=== PATIENT | female | born 1945 | race Two or more races ===

== ENCOUNTER 2017-01-26 13:09 | Observation (INO) | payer MEDICAID, OTHER ==
[~2017-01-26] VITALS: Ht 162.6 cm; Wt 72.6 kg
[2017-01-26 14:34] LABS: Urine RBC None Seen /hpf (0 - 4)
[2017-01-26 14:44] LABS: Basophils # (auto) 0.2 uL; Basophils % (auto) 1.8 % (0.0-2.0); Eosinophils # (auto) 0.4 uL; Eosinophils % (auto) 3.2 % (0.0-7.0); Hematocrit 43.3 % (36.0-46.0); Lymphocytes # (auto) 4.3 uL; Mean Corpuscular Hemoglobin 28.8 pg (28.0-32.0); Mean Corpuscular Hgb Conc. 34.6 g/dL (32.0-36.0); Mean Platelet Volume 8.7 fL (7.4-10.4); Monocytes # (auto) 0.8 uL; Monocytes % (auto) 7.7 % (0.0-12.0); Neutrophils # (auto) 5.3 uL; Neutrophils % (auto) 48.3 % (37.0-80.0); Platelet Count (auto) 403 10^3/uL (140-450); Red Cell Distribution Width 13.9 % (11.6-16.0); White Blood Cell 10.9 10^3/uL (4.4-10.8)
[2017-01-26 14:48] LABS: Urine Bilirubin Negative (Negative); Urine Blood Negative /uL (Negative); Urine Color Yellow (Yellow); Urine Glucose Normal (Normal); Urine Ketone Negative (Negative); Urine Nitrite Negative (Negative); Urine Squamous Epithelial Cell FEW /hpf (<5); Urine Urobilinogen Normal (Negative); Urine pH 6.5 (5.0-8.0)
[2017-01-26 15:16] LABS: Albumin 3.3 g/dL (3.4-5.0); BUN/Creatinine Ratio 23.5; Calcium 9.3 mg/dL (8.5-10.1); Potassium 3.3 mmol/L (3.5-5.1)
[2017-01-26 15:20] LABS: Bilirubin, Total 0.5 mg/dL (0.2-1.0); Total Protein 7.5 g/dL (6.4-8.2)
[2017-01-26 16:05] LABS: B-Type Natriuretic Peptide 164.46 pg/mL (0-100); Temperature: 23.9 C (20.0-25.0)
[2017-01-26] MEDS ORDERED: POTASSIUM CHL 20 Meq TABLET PO ONE ×2 (19:15→20:00)
[2017-01-26] MEDS ORDERED: ASPirin 81 mg TAB PO ONE (20:00)
[2017-01-26 23:54] VITALS: BP 138/75
== END 2017-01-27 00:04 | disposition short-term general hospital (02) | DRG 311 ==
LOC: ER 13:18 → EDLOC 13:19 → OVERFLOW 19:54 → ER 19:54 → UNDOADMOB 19:54
PROVIDERS: ADMIT Family Medicine; ATTEND Family Medicine
DX: I24.9 Acute ischemic heart disease, unspecified (principal); I50.41 Acute combined systolic (congestive) and diastolic (congestive) heart failure; E87.6 Hypokalemia; R79.89 Other specified abnormal findings of blood chemistry; F32.9 Major depressive disorder, single episode, unspecified; I11.0 Hypertensive heart disease with heart failure; E11.9 Type 2 diabetes mellitus without complications; Z83.3 Family history of diabetes mellitus; Z82.49 Family history of ischemic heart disease and other diseases of the circulatory system; I25.10 Atherosclerotic heart disease of native coronary artery without angina pectoris; F41.9 Anxiety disorder, unspecified
CPT/HCPCS: 36415; 71020; 80053; 81001; 83735; 83880; 84443; 84484; 85025; 93005; 99285; G0378

== ENCOUNTER 2017-02-23 21:06 | Emergency (ER) | payer OTHER ==
[~2017-02-23] VITALS: Ht 162.6 cm; Wt 74.8 kg
[2017-02-23 22:15] LABS: Basophils # (auto) 0.1 uL; Basophils % (auto) 0.4 % (0.0-2.0); CONDITION Y; Eosinophils # (auto) 0.2 uL; Eosinophils % (auto) 1.4 % (0.0-7.0); Hematocrit 41.3 % (36.0-46.0); Hemoglobin 13.8 g/dL (12.2-16.2); Lymphocytes # (auto) 2.7 uL; Lymphocytes % (auto) 18.8 % (10.0-50.0); Mean Corpuscular Hemoglobin 27.8 pg (28.0-32.0); Mean Corpuscular Hgb Conc. 33.5 g/dL (32.0-36.0); Mean Corpuscular Volume 82.9 fL (80.0-100.0); Mean Platelet Volume 8.4 fL (7.4-10.4); Monocytes % (auto) 7.1 % (0.0-12.0); Neutrophils # (auto) 10.4 uL; Neutrophils % (auto) 72.3 % (37.0-80.0); Platelet Count (auto) 420 10^3/uL (140-450); Red Cell Distribution Width 13.4 % (11.6-16.0); White Blood Cell 14.4 10^3/uL (4.4-10.8)
[2017-02-23 22:17] LABS: Albumin 3.3 g/dL (3.4-5.0); BUN/Creatinine Ratio 19.3; Calcium 8.6 mg/dL (8.5-10.1); Magnesium 2.1 mg/dL (1.6-2.6); Potassium 3.4 mmol/L (3.5-5.1)
[2017-02-23 22:23] LABS: Bilirubin, Total 0.6 mg/dL (0.2-1.0); Total Protein 7.5 g/dL (6.4-8.2)
[2017-02-23 22:24] LABS: INR 0.97 (0.9-1.15); Partial Thromboplastin Time 25.9 sec (22.64-33.71); Prothrombin Time 10.6 sec (9.37-12.3)
[2017-02-24] MEDS ORDERED: HYDROcodone-ACET 5/325MG TAB PO ONE (05:15)
[2017-02-24 05:47] VITALS: BP 121/67
== END 2017-02-24 06:04 | disposition short-term general hospital (02) ==
LOC: ER 21:08
DX: K85.90 Acute pancreatitis without necrosis or infection, unspecified (principal); J45.909 Unspecified asthma, uncomplicated; H40.9 Unspecified glaucoma; I25.10 Atherosclerotic heart disease of native coronary artery without angina pectoris; E11.9 Type 2 diabetes mellitus without complications; R41.82 Altered mental status, unspecified; I10 Essential (primary) hypertension; I25.2 Old myocardial infarction; Z90.49 Acquired absence of other specified parts of digestive tract
CPT/HCPCS: 36415; 70450; 71010; 74176; 80053; 82150; 83690; 83735; 84484; 85025; 85610; 85730; 93005

== ENCOUNTER 2018-05-18 11:21 | Emergency (ER) | payer OTHER, MEDICAID ==
[~2018-05-18] VITALS: Ht 157.5 cm; Wt 68.0 kg
[2018-05-18] MEDS ORDERED: SODIUM CHLORIDE 0.9% 1,000 ML IV ONE (11:27)
[2018-05-18 12:22] LABS: Basophils # (auto) 0.1 uL; Basophils % (auto) 0.6 % (0.0-2.0); Eosinophils # (auto) 0 uL; Eosinophils % (auto) 0.2 % (0.0-7.0); Hematocrit 45.1 % (36.0-46.0); Hemoglobin 14.9 g/dL (12.2-16.2); Lymphocytes # (auto) 1.5 uL; Lymphocytes % (auto) 12.7 % (10.0-50.0); Mean Corpuscular Hgb Conc. 33.1 g/dL (32.0-36.0); Mean Corpuscular Volume 84.7 fL (80.0-100.0); Monocytes % (auto) 8.3 % (0.0-12.0); Neutrophils # (auto) 9.2 uL; Neutrophils % (auto) 78.2 % (37.0-80.0); Platelet Count (auto) 276 10^3/uL (140-450); Red Blood Cells 5.32 10^6/uL (4.0-5.20); Red Cell Distribution Width 14.9 % (11.8-14.3); White Blood Cell 11.8 10^3/uL (4.4-10.8)
[2018-05-18 12:43] LABS: INR 1.07 (0.9-1.15); Partial Thromboplastin Time 32.4 sec (23.78-33.04); Prothrombin Time 11.4 sec (9.27-12.13)
[2018-05-18] MEDS ORDERED: ONDANSETRON HCL 4 MG/2 ML VIAL IV ONE (12:45)
[2018-05-18 12:46] LABS: BUN/Creatinine Ratio 12.9; Bilirubin, Total 0.7 mg/dL (0.2-1.0); Calcium 9.4 mg/dL (8.5-10.1); Magnesium 2.4 mg/dL (1.6-2.6); Potassium 3.5 mmol/L (3.5-5.1); Total Protein 8.1 g/dL (6.4-8.2)
[2018-05-18] MEDS ORDERED: FUROSEMIDE 40 MG/4 ML VIAL ONE (13:53)
[2018-05-18] MEDS ORDERED: FUROSEMIDE 40 MG/4 ML VIAL IV ONE (14:00)
[2018-05-18 14:57] VITALS: BP 158/90
== END 2018-05-18 15:03 | disposition short-term general hospital (02) ==
LOC: EDBD 11:21 → ER 11:21
DX: I48.91 Unspecified atrial fibrillation (principal); R07.9 Chest pain, unspecified; R11.2 Nausea with vomiting, unspecified; J45.909 Unspecified asthma, uncomplicated; I25.10 Atherosclerotic heart disease of native coronary artery without angina pectoris; E11.9 Type 2 diabetes mellitus without complications; I10 Essential (primary) hypertension; I25.2 Old myocardial infarction; Z90.49 Acquired absence of other specified parts of digestive tract; Z86.73 Personal history of transient ischemic attack (TIA), and cerebral infarction without residual deficits
CPT/HCPCS: 36415; 71045; 80053; 83735; 83880; 84484; 85025; 85610; 85730; 93005; 94761; 96361; 96374; 96375; 99291; J1940; J2405

== ENCOUNTER 2019-08-16 18:34 | Emergency (ER) | payer OTHER, MEDICAID ==
[~2019-08-16] VITALS: Ht 162.6 cm; Wt 68.0 kg
[2019-08-16] MEDS ORDERED: DILTIAZEM HCL 25 MG/5 ML VIAL IV ONE (20:30)
[2019-08-16] MEDS ORDERED: DILTIAZEM HCL 60 MG TAB PO ONE (20:30)
[2019-08-16 21:36] LABS: Albumin 3.4 g/dL (3.4-5.0); Calcium 8.6 mg/dL (8.5-10.1); Potassium 3.6 mmol/L (3.5-5.1)
[2019-08-16 21:38] LABS: BUN/Creatinine Ratio 12.9
[2019-08-16 21:42] LABS: Basophils # (auto) 0.1 uL; Basophils % (auto) 0.9 % (0.0-2.0); Bilirubin, Total 0.8 mg/dL (0.2-1.0); Eosinophils # (auto) 0.2 uL; Eosinophils % (auto) 2.3 % (0.0-7.0); Hematocrit 44.6 % (36.0-46.0); Hemoglobin 14.5 g/dL (12.2-16.2); Lymphocytes # (auto) 2.9 uL; Lymphocytes % (auto) 29.1 % (10.0-50.0); Mean Corpuscular Hemoglobin 27.4 pg (28.0-32.0); Mean Corpuscular Hgb Conc. 32.6 g/dL (32.0-36.0); Monocytes % (auto) 9.9 % (0.0-12.0); Neutrophils # (auto) 5.7 uL; Neutrophils % (auto) 57.8 % (37.0-80.0); Nucleated Red Blood Cells % 0.1 %; Platelet Count (auto) 274 10^3/uL (140-450); Red Blood Cells 5.31 10^6/uL (4.0-5.20); Red Cell Distribution Width 17.3 % (11.8-14.3); Total Protein 7.1 g/dL (6.4-8.2); White Blood Cell 9.9 10^3/uL (4.4-10.8)
[2019-08-16 22:50] LABS: Urine Bacteria FEW /hpf (None Seen); Urine Blood Negative /uL (Negative); Urine Hyaline Cast FEW /lpf (0 - 2); Urine Mucus FEW (None Seen); Urine Specific Gravity 1.012 (1.001-1.035); Urine WBC 21 /hpf (0 - 5)
[2019-08-16 23:15] VITALS: BP 134/73
== END 2019-08-16 23:28 | disposition home or self-care (01) ==
LOC: EDBD 18:34 → ER 18:34
DX: I48.0 Paroxysmal atrial fibrillation (principal); J45.909 Unspecified asthma, uncomplicated; E11.9 Type 2 diabetes mellitus without complications; I10 Essential (primary) hypertension; I25.2 Old myocardial infarction; Z90.49 Acquired absence of other specified parts of digestive tract; Z86.73 Personal history of transient ischemic attack (TIA), and cerebral infarction without residual deficits
CPT/HCPCS: 36415; 71045; 80053; 81001; 83880; 84484; 85025; 92960; 93005; 96374

== ENCOUNTER 2019-08-17 21:47 | Emergency (ER) | payer OTHER, MEDICAID ==
[~2019-08-17] VITALS: Ht 170.2 cm; Wt 65.8 kg
[2019-08-17 23:14] LABS: Basophils # (auto) 0.1 uL; Basophils % (auto) 0.9 % (0.0-2.0); Eosinophils # (auto) 0.2 uL; Eosinophils % (auto) 1.6 % (0.0-7.0); Hematocrit 45.5 % (36.0-46.0); Hemoglobin 14.3 g/dL (12.2-16.2); Lymphocytes # (auto) 3.1 uL; Lymphocytes % (auto) 27.3 % (10.0-50.0); Mean Corpuscular Hemoglobin 27.3 pg (28.0-32.0); Mean Corpuscular Hgb Conc. 31.4 g/dL (32.0-36.0); Mean Corpuscular Volume 86.8 fL (80.0-100.0); Monocytes # (auto) 0.9 uL; Monocytes % (auto) 7.7 % (0.0-12.0); Neutrophils # (auto) 7.1 uL; Neutrophils % (auto) 62.5 % (37.0-80.0); Nucleated Red Blood Cells % 0.2 %; Platelet Count (auto) 290 10^3/uL (140-450); Red Blood Cells 5.24 10^6/uL (4.0-5.20); White Blood Cell 11.3 10^3/uL (4.4-10.8)
[2019-08-17 23:37] LABS: Albumin 3.1 g/dL (3.4-5.0); Anion Gap 9 (5-15); Blood Urea Nitrogen 20 mg/dL (7-18); Calcium 8.3 mg/dL (8.5-10.1); Carbon Dioxide 20 mmol/L (21-32); Chloride 112 mmol/L (98-107); Glucose 182 mg/dL (74-106); Potassium 4.2 mmol/L (3.5-5.1); Sodium 141 mmol/L (136-145)
[2019-08-17 23:39] LABS: Alanine Aminotransferase 60 U/L (13-56); Aspartate Aminotransferase 79 U/L (15-37); GFR African American 54 mL/min; GFR Non-African American 45 mL/min
[2019-08-17 23:41] LABS: Alkaline Phosphatase 131 U/L (45-117); Bilirubin, Total 0.6 mg/dL (0.2-1.0); Total Protein 6.6 g/dL (6.4-8.2)
[2019-08-17 23:45] LABS: Amylase 42 U/L (25-115); Lipase 123 U/L (73-393)
[2019-08-18 02:32] LABS: Urine Bacteria FEW /hpf (None Seen); Urine Blood Negative /uL (Negative); Urine Hyaline Cast MANY /lpf (0 - 2); Urine Mucus FEW (None Seen); Urine Specific Gravity 1.015 (1.001-1.035); Urine WBC 39 /hpf (0 - 5)
[2019-08-18] MEDS ORDERED: cefTRIAXone 1GM/50ML D5W 50 ML IV ONE (08:15)
[2019-08-18 12:37] LABS: INR 1.17 (0.9-1.15); Partial Thromboplastin Time 33.9 sec (23.64-32.05)
[2019-08-18 13:00] VITALS: BP 163/94
== END 2019-08-18 13:22 | disposition home or self-care (01) ==
LOC: EDBD 21:47 → ER 21:48
DX: K55.1 Chronic vascular disorders of intestine (principal); N39.0 Urinary tract infection, site not specified; I48.20 Chronic atrial fibrillation, unspecified; R74.8 Abnormal levels of other serum enzymes; E44.1 Mild protein-calorie malnutrition; E11.21 Type 2 diabetes mellitus with diabetic nephropathy; E11.65 Type 2 diabetes mellitus with hyperglycemia; J45.909 Unspecified asthma, uncomplicated; E78.5 Hyperlipidemia, unspecified; R55 Syncope and collapse; I25.2 Old myocardial infarction; Z90.49 Acquired absence of other specified parts of digestive tract; Z68.22 Body mass index [BMI] 22.0-22.9, adult; Z86.73 Personal history of transient ischemic attack (TIA), and cerebral infarction without residual deficits
CPT/HCPCS: 36415; 70450; 74176; 80053; 81001; 82150; 83605; 83690; 84484; 85025; 85610; 85730; 93005; 96365; 99285; J0696

== ENCOUNTER 2020-06-07 21:43 | Inpatient (IN) | payer OTHER, MEDICAID ==
[~2020-06-07] VITALS: Ht 162.6 cm; Wt 74.1 kg
[~2020-06-07 21:43] MED LIST: ALP15OS OP; AML5T PO; ASPI1TAB19 PO; ATE50T PO; ATOR20TA PO; CITA10TA70 PO; DORZ2SOL18 EACHEYE; HYDR25TA4 PO; LATA0.0019 OP; LOSA-69 PO; METF-370 PO; OXYB5TAB24 PO
[2020-06-07 22:44] LABS: Basophils # (auto) 0.1 10 ^3/uL (0-0.2); Basophils % (auto) 1.5 % (0.0-2.0); Eosinophils # (auto) 0.3 10 ^3/uL (0-0.8); Eosinophils % (auto) 2.9 % (0.0-7.0); Hematocrit 43.3 % (36.0-46.0); Hemoglobin 14.2 g/dL (12.2-16.2); Lymphocytes # (auto) 2.6 10 ^3/uL (0.4-5.4); Lymphocytes % (auto) 28.3 % (10.0-50.0); Mean Corpuscular Hemoglobin 27.3 pg (28.0-32.0); Mean Corpuscular Hgb Conc. 32.8 g/dL (32.0-36.0); Mean Corpuscular Volume 83.2 fL (80.0-100.0); Monocytes % (auto) 10.7 % (0.0-12.0); Neutrophils # (auto) 5.1 10 ^3/uL (1.6-8.6); Neutrophils % (auto) 56.6 % (37.0-80.0); Platelet Count (auto) 345 10^3/uL (140-450); Red Blood Cells 5.21 10^6/uL (4.0-5.20); Red Cell Distribution Width 15.5 % (11.8-14.3); White Blood Cell 9.1 10^3/uL (4.4-10.8)
[2020-06-07 23:04] LABS: INR 1.13 (0.9-1.15); Partial Thromboplastin Time 25.1 sec (23.0-31.2)
[2020-06-07 23:05] LABS: Albumin 3.2 g/dL (3.4-5.0); Calcium 9.1 mg/dL (8.5-10.1); Potassium 4.3 mmol/L (3.5-5.1)
[2020-06-07 23:10] LABS: BUN/Creatinine Ratio 15.2; Bilirubin, Total 0.8 mg/dL (0.2-1.0); Total Protein 7.3 g/dL (6.4-8.2)
[2020-06-08] MEDS ORDERED: IOHEXOL 350 MG/ML 100ML IJ ONE
[2020-06-08 00:05] LABS: Urine Bacteria NONE SEEN /hpf (None Seen); Urine Blood Negative /uL (Negative); Urine Mucus FEW (None Seen); Urine Specific Gravity 1.016 (1.001-1.035); Urine WBC 87 /hpf (0 - 5)
[2020-06-08 00:22] LABS: Alcohol, Urine < 3.0 mg/dL (0-10); Amphetamine Screen, Urine NEGATIVE (NEGATIVE); Barbiturate Scree,Urine NEGATIVE (NEGATIVE); Benzodiazephine Screen, Urine NEGATIVE (NEGATIVE); Cannabinoid Screen, Urine NEGATIVE (NEGATIVE); Cocaine Screen, Urine NEGATIVE (NEGATIVE); Phencyclidine Screen, Urine NEGATIVE (NEGATIVE)
[2020-06-08 00:30] LABS: Opiate Scree,Urine POSITIVE (NEGATIVE)
[2020-06-08] MEDS ORDERED: cefTRIAXone 1GM/50ML D5W 50 ML IV ONE (01:15)
[2020-06-08] MEDS ORDERED: ENOXAPARIN SOD 100 MG/1 ML SYRINGE SC ONE (05:15)
[2020-06-08] MEDS ORDERED: TEMAZEPAM 15 MG CAP PO PRN (05:15)
[2020-06-08] MEDS ORDERED: ONDANSETRON HCL 4 MG/2 ML VIAL IV PRN (05:15)
[2020-06-08] MEDS ORDERED: NITROGLYCERIN 0.4 MG SL TAB SL PRN (05:15)
[2020-06-08] MEDS ORDERED: MORPHINE SULF INJ 2 MG/ML SYRINGE 1ML IV PRN (05:15)
[2020-06-08] MEDS: cloNIDine HCL 0.1 MG TAB PO PRN ×2 (06:05→12:55)
--- NOTE | 2020-06-08 06:18 | NUR ---
Telemetry admit from ER Patient admitted to Telemetry unit. Patient oriented to primary RN, unit, room, bed, and unit policies regarding patient care and visiting hours. Patient now on continuous telemetry monitoring, tele box # 40. Patient placed on bedside oxygen 4L NC, weighed by bedscale and encouraged to call if they need something. All questions and concerns addressed, patient verbalized understanding. Seizure and safety precautions in place.
[2020-06-08 06:53] VITALS: BP 157/94
--- NOTE | 2020-06-08 07:28 | NUR ---
End of Shift Note Endorsed care to dayshift RN. At this time patient has no ss/s of distress or SOB.
[2020-06-08] MEDS ORDERED: DEXTROSE (50%) 50ML SYRG IV PRN (07:30)
[2020-06-08 08:42] VITALS: BP 157/94
[2020-06-08] MEDS: cefTRIAXone 1GM/50ML D5W 50 ML IV SCH (09:52)
[2020-06-08] MEDS: ASPirin 81 mg TAB PO SCH (09:53)
[2020-06-08] MEDS: levETIRAcetam 500 MG TAB PO SCH ×2 (09:53→21:18)
[2020-06-08] MEDS: FAMOTIDINE 20 MG TAB PO SCH ×2 (09:53→21:18)
[2020-06-08] MEDS: MEMANTINE HCL 5 MG TAB PO SCH (09:53)
[2020-06-08] MEDS ORDERED: ENOXAPARIN SOD 40 MG/0.4 ML SYRINGE SC SCH (10:00)
[2020-06-08] MEDS: dilTIAZem HCL 180MG ER CAP PO SCH (10:00)
[2020-06-08] MEDS: LOSARTAN POTASSIUM 50 MG TAB PO SCH (10:00)
[2020-06-08] MEDS: DABIGATRAN 75 MG CAP PO SCH ×2 (10:03→21:44)
[2020-06-08] MEDS: FUROSEMIDE 40 MG TAB PO SCH (10:03)
--- NOTE | 2020-06-08 10:30 | NUR ---
PT'S SON HIWOT FRANKS STATES HE IS POA- WOULD LIKE PT TO BE DNR HIWOT STATES HE WILL BRING DOCUMENTS FOR MD.
[2020-06-08] MEDS: InsuLIN REG 1unit/0.01ml Soln (100units/ml) SC SCH ×3 (12:18→21:40)
[2020-06-08] MEDS: ACCU-CHEK COMFORT CURVE STRIP VI SCH ×3 (12:19→21:47)
--- NOTE | 2020-06-08 12:30 | NUR ---
MD AWARE OF PT'S SON REQUEST FOR DNR AWAITING POA
--- NOTE | 2020-06-08 12:41 | NUR ---
CARDIO CONSULT CALLED TO DR. CAMILO
[2020-06-08 12:46] LABS: Cholesterol 133 mg/dL (< 200)
[2020-06-08 12:49] LABS: HDL Cholesterol 32 mg/dL (40-59); LDL Cholesterol 90 mg/dL (< 100); Triglycerides 107 mg/dL (< 150)
[2020-06-08] MEDS: ACETAMINOPHEN 325 MG TAB PO PRN ×2 (12:54→22:26)
[2020-06-08] MEDS: hydrALAZINE HCL 25 MG TAB PO SCH ×2 (12:55→21:20)
[2020-06-08 13:00] VITALS: BP 156/102
--- NOTE | 2020-06-08 13:25 | NUR ---
MATTHEW REAGAN FROM [facility] CALLED FOR UPDATES ON PLAN OF CARE. TEZ WILL CALL BACK.
--- NOTE | 2020-06-08 13:59 | NUR ---
PT'S SON HIWOT BROUGHT POA DOCUMENTS. MD ROGERS MADE AWARE OF DOCUMENTS ARRIVAL. PER MD-- INPUT DNR ORDER IN SYSTEM, HE WILL SIGN ORDER IN A.M. DOCUMENTS IN FRONT OF CHART.
[2020-06-08 16:15] VITALS: BP_SYST 127; BP_SYST 140; BP_DIAS 43; BP_DIAS 92
[2020-06-08] MEDS: BRIMONIDINE 0.2% OPTH Soln 5ml EACHEYE SCH (21:17)
[2020-06-08] MEDS: LATANOPROST 0.005 % OPTH(EYE) SOL 2.5ML EACHEYE SCH (21:17)
[2020-06-08] MEDS: DORZOLAM-TIMOLOL(2/0.5%) OPTH(EYE) SOLN 10ML OP SCH (21:18)
[2020-06-08] MEDS: ATORVASTATIN 20 MG TAB PO SCH (21:19)
[2020-06-08 22:00] VITALS: BP 147/98
[2020-06-08] MEDS ORDERED: DORZOLAMIDE HCL 2% OPTH(EYE) SOL 10ML EACHEYE SCH (22:00)
[2020-06-09 05:19] VITALS: BP 145/74
[2020-06-09] MEDS: InsuLIN REG 1unit/0.01ml Soln (100units/ml) SC SCH ×4 (06:07→21:54)
[2020-06-09] MEDS: ACCU-CHEK COMFORT CURVE STRIP VI SCH ×4 (06:07→21:40)
[2020-06-09] MEDS: ACETAMINOPHEN 325 MG TAB PO PRN ×3 (06:22→22:13)
[2020-06-09] MEDS: hydrALAZINE HCL 25 MG TAB PO SCH ×3 (06:22→21:39)
--- NOTE | 2020-06-09 06:53 | NUR ---
End of Shift Note Will endorse care to dayshift RN. At this time patient has no s/s of distress or SOB. Seizure and safety precautions in place.
[2020-06-09 07:05] LABS: Basophils # (auto) 0.1 10 ^3/uL (0-0.2); Basophils % (auto) 0.9 % (0.0-2.0); Eosinophils # (auto) 0.4 10 ^3/uL (0-0.8); Eosinophils % (auto) 5.5 % (0.0-7.0); Hematocrit 42.4 % (36.0-46.0); Hemoglobin 13.6 g/dL (12.2-16.2); Lymphocytes # (auto) 2.3 10 ^3/uL (0.4-5.4); Lymphocytes % (auto) 32.8 % (10.0-50.0); Mean Corpuscular Hemoglobin 26.9 pg (28.0-32.0); Mean Corpuscular Hgb Conc. 32.2 g/dL (32.0-36.0); Mean Corpuscular Volume 83.6 fL (80.0-100.0); Monocytes # (auto) 0.7 10 ^3/uL (0-1.3); Monocytes % (auto) 10.1 % (0.0-12.0); Neutrophils # (auto) 3.6 10 ^3/uL (1.6-8.6); Neutrophils % (auto) 50.7 % (37.0-80.0); Platelet Count (auto) 350 10^3/uL (140-450); Red Blood Cells 5.08 10^6/uL (4.0-5.20); Red Cell Distribution Width 15.8 % (11.8-14.3); White Blood Cell 7.1 10^3/uL (4.4-10.8)
[2020-06-09 07:23] LABS: BUN/Creatinine Ratio 27.9; Calcium 9.2 mg/dL (8.5-10.1); Potassium 3.6 mmol/L (3.5-5.1)
[2020-06-09] MEDS ORDERED: ADENOSINE 62 MG in GIVE UN-DILUTED 0 ML IV STA (08:16)
[2020-06-09 09:00] VITALS: BP 150/83
--- NOTE | 2020-06-09 09:02 | NUR ---
Hospitalist Rounded Patient off unit for Stress test.
[2020-06-09 09:30] VITALS: BP 151/85
[2020-06-09] MEDS: cefTRIAXone 1GM/50ML D5W 50 ML IV SCH (11:10)
[2020-06-09] MEDS: BRIMONIDINE 0.2% OPTH Soln 5ml EACHEYE SCH ×2 (11:23→21:47)
[2020-06-09] MEDS: DORZOLAM-TIMOLOL(2/0.5%) OPTH(EYE) SOLN 10ML OP SCH ×2 (11:24→21:53)
[2020-06-09] MEDS: dilTIAZem HCL 180MG ER CAP PO SCH (11:25)
[2020-06-09] MEDS: levETIRAcetam 500 MG TAB PO SCH ×2 (11:25→21:38)
[2020-06-09] MEDS: LOSARTAN POTASSIUM 50 MG TAB PO SCH (11:25)
[2020-06-09] MEDS: FAMOTIDINE 20 MG TAB PO SCH ×2 (11:26→21:38)
[2020-06-09] MEDS: ASPirin 81 mg TAB PO SCH (11:26)
[2020-06-09] MEDS: DABIGATRAN 75 MG CAP PO SCH ×2 (11:26→21:39)
[2020-06-09] MEDS: MEMANTINE HCL 5 MG TAB PO SCH (11:26)
[2020-06-09] MEDS: FUROSEMIDE 40 MG TAB PO SCH (11:26)
[2020-06-09 13:00] VITALS: BP 154/99
[2020-06-09 17:00] VITALS: BP 144/75
--- NOTE | 2020-06-09 19:20 | NUR ---
Opening Shift Note Received report from Bertha LAZARO. Assumed care of patient, awake and alert. No S/S of distress/SOB or pain. Instructed on POC and to call for assist PRN. Fall precaution measures in place, will continue to monitor for changes Q1hr and PRN.
[2020-06-09] MEDS: ATORVASTATIN 20 MG TAB PO SCH (21:38)
[2020-06-09] MEDS: LATANOPROST 0.005 % OPTH(EYE) SOL 2.5ML EACHEYE SCH (21:40)
[2020-06-09 22:21] VITALS: BP 168/110
[2020-06-10 05:43] VITALS: BP 160/86
[2020-06-10] MEDS: ACCU-CHEK COMFORT CURVE STRIP VI SCH ×2 (06:36→12:00)
[2020-06-10] MEDS: hydrALAZINE HCL 25 MG TAB PO SCH ×2 (06:36→16:36)
[2020-06-10] MEDS: InsuLIN REG 1unit/0.01ml Soln (100units/ml) SC SCH ×2 (06:37→12:24)
[2020-06-10] MEDS: cloNIDine HCL 0.1 MG TAB PO PRN (08:31)
[2020-06-10] MEDS: cefTRIAXone 1GM/50ML D5W 50 ML IV SCH (08:32)
[2020-06-10 09:00] VITALS: BP 172/91
--- NOTE | 2020-06-10 09:15 | NUR ---
Hospitalist Rounding Dr. Pineda at bedside, he will make phone call to patient's son regarding plan of care.
[2020-06-10] MEDS: ASPirin 81 mg TAB PO SCH (10:07)
[2020-06-10] MEDS: dilTIAZem HCL 180MG ER CAP PO SCH (10:08)
[2020-06-10] MEDS: MEMANTINE HCL 5 MG TAB PO SCH (10:09)
[2020-06-10] MEDS: levETIRAcetam 500 MG TAB PO SCH (10:09)
[2020-06-10] MEDS: LOSARTAN POTASSIUM 50 MG TAB PO SCH (10:09)
[2020-06-10] MEDS: DABIGATRAN 75 MG CAP PO SCH (10:09)
[2020-06-10] MEDS: FUROSEMIDE 40 MG TAB PO SCH (10:09)
[2020-06-10] MEDS: BRIMONIDINE 0.2% OPTH Soln 5ml EACHEYE SCH (10:12)
[2020-06-10] MEDS: DORZOLAM-TIMOLOL(2/0.5%) OPTH(EYE) SOLN 10ML OP SCH (10:12)
--- NOTE | 2020-06-10 11:30 | NUR ---
[facility] Phone call received from medical case manager at [facility] regarding patient's status. Informed that patient will be discharged home today once she is cleared by bleach supervisor.
[2020-06-10] MEDS: FAMOTIDINE 20 MG TAB PO SCH (12:00)
--- NOTE | 2020-06-10 12:00 | NUR ---
Cardiology Clearance Telephone clearance received from Dr. Dugan. Patient is cleared for discharge home.
[2020-06-10 13:00] VITALS: BP_SYST 117; BP_SYST 136; BP_DIAS 47; BP_DIAS 63
--- NOTE | 2020-06-10 13:51 | NUR ---
I faxed home health order to [facility].
--- NOTE | 2020-06-10 16:15 | NUR ---
Home Health As per [employer], [facility] will contact patient regarding home health placement. Addendum: 06/10/20 at 1617 by BHARAT LAWLER RN Home Health As per [employer], [facility] will contact patient regarding home health company and time of service.
--- NOTE | 2020-06-10 16:18 | NUR ---
4805 06/10/20 I called [facility] and spoke with Technical Inspector Mora-she stated they will contact patient regarding home health arrangements. Patient to discharge home today-inpatient authorization effective until today-no further authorization request required. I let nurse Bertha know that patient is okay to be discharged and that [facility] will contact patient regarding home health.
[2020-06-10 17:00] VITALS: BP_SYST 142; BP_SYST 175; BP_DIAS 71; BP_DIAS 83
--- NOTE | 2020-06-10 17:15 | NUR ---
Blood pressure recheck 142/71
[2020-06-10] MEDS: ACETAMINOPHEN 325 MG TAB PO PRN (17:25)
--- NOTE | 2020-06-10 17:25 | NUR ---
Pain Patient complained of pain to her right arm and shoulder while moving her to get dressed for discharge home. States it is currently at 3 while at rest and 7 with movements. Pain medication administered at this time. Will not be able to reassess and patient's transport will be here soon. Patient will be able to tolerate transport home better with pain medication on board.
--- NOTE | 2020-06-10 17:45 | NUR ---
Discharge instructions given as ordered. Encourage to follow up with PMD as instructed. All questions and concerns addressed. Patient verbalized understanding. Medication reconciliation form completed and copy given to patient. Home medications held in Pharmacy returned to patient. IV removed with catheter intact and pressure dressing applied. Telemetry unit returned to ICU. Patient taken to vehicle via wheelchair with all personal belongings, accompanied by staff. No distress noted at time of departure.
== END 2020-06-10 17:45 | disposition home health service (06) | DRG 280 ==
LOC: EDBD 21:43 → ER 21:45 → TELE-CENTR 21:46
PROVIDERS: ADMIT Nurse Practitioner; ATTEND Family Medicine
DX: I21.4 Non-ST elevation (NSTEMI) myocardial infarction (principal); I50.23 Acute on chronic systolic (congestive) heart failure; N39.0 Urinary tract infection, site not specified; E78.00 Pure hypercholesterolemia, unspecified; I11.0 Hypertensive heart disease with heart failure; E11.9 Type 2 diabetes mellitus without complications; F03.90 Unspecified dementia, unspecified severity, without behavioral disturbance, psychotic disturbance, mood disturbance, and anxiety; I48.91 Unspecified atrial fibrillation; F41.9 Anxiety disorder, unspecified; I25.10 Atherosclerotic heart disease of native coronary artery without angina pectoris; F32.9 Major depressive disorder, single episode, unspecified; E78.5 Hyperlipidemia, unspecified; E66.9 Obesity, unspecified; Z66 Do not resuscitate; J45.909 Unspecified asthma, uncomplicated; G40.909 Epilepsy, unspecified, not intractable, without status epilepticus; Z90.49 Acquired absence of other specified parts of digestive tract; Z83.3 Family history of diabetes mellitus; Z82.49 Family history of ischemic heart disease and other diseases of the circulatory system; Z86.73 Personal history of transient ischemic attack (TIA), and cerebral infarction without residual deficits; Z79.01 Long term (current) use of anticoagulants; H40.9 Unspecified glaucoma; Z68.27 Body mass index [BMI] 27.0-27.9, adult
CPT/HCPCS: 36415; 70450; 71045; 71275; 78452; 80048; 80053; 80061; 80307; 80320; 81001; 82962; 83605; 83880; 84484; 85025; 85379; 85610; 85730; 93005; 93017; 93306; 93970; G0378; J0153; J0696; J1815

== ENCOUNTER 2021-07-12 01:10 | Inpatient (IN) | payer OTHER, MEDICAID ==
[2021-07-11 01:44] VITALS: BP 184/99
[~2021-07-12] VITALS: Ht 162.6 cm; Wt 76.5 kg
[2021-07-12] VITALS (7 sets, daily range): BP systolic 140–184; BP diastolic 82–105
[2021-07-12] MEDS ORDERED: PIPERACILLIN-TAZOB 3.375GM 100 ML IV ONE (01:15)
[2021-07-12] MEDS ORDERED: VANCOMYCIN 1GM/250ML 250 ML IV ONE (01:15)
[2021-07-12] MEDS ORDERED: ETOMIDATE (2MG/ML) 20ML VIAL IV ONE (01:32)
[2021-07-12] MEDS ORDERED: SUCCINYLCHOLINE CHLORIDE 20 MG/ML 10ML VIAL IV ONE (01:33)
[2021-07-12] MEDS ORDERED: dilTIAZem 25 MG/5 ML VIAL IV ONE ×4 (01:45→23:00)
[2021-07-12 01:46] LABS: Basophils # (auto) 0.1 10 ^3/uL (0-0.2); Basophils % (auto) 0.7 % (0.0-2.0); Eosinophils # (auto) 0.3 10 ^3/uL (0-0.8); Eosinophils % (auto) 1.6 % (0.0-7.0); Hemoglobin 13.8 g/dL (12.2-16.2); Lymphocytes # (auto) 2.7 10 ^3/uL (0.4-5.4); Lymphocytes % (auto) 16.7 % (10.0-50.0); Mean Corpuscular Hemoglobin 27.8 pg (28.0-32.0); Mean Corpuscular Hgb Conc. 32.9 g/dL (32.0-36.0); Mean Corpuscular Volume 84.7 fL (80.0-100.0); Monocytes # (auto) 0.9 10 ^3/uL (0-1.3); Monocytes % (auto) 5.8 % (0.0-12.0); Neutrophils # (auto) 12.1 10 ^3/uL (1.6-8.6); Neutrophils % (auto) 75.2 % (37.0-80.0); Nucleated Red Blood Cells % 0.1 %; Red Blood Cells 4.96 10^6/uL (4.0-5.20); Red Cell Distribution Width 14.3 % (11.8-14.3); White Blood Cell 16.1 10^3/uL (4.4-10.8)
[2021-07-12 01:58] LABS: Albumin 3.3 g/dL (3.4-5.0); Calcium 9.5 mg/dL (8.5-10.1); Potassium 3.2 mmol/L (3.5-5.1)
[2021-07-12 01:59] LABS: Lactic Acid w/Reflex 2.5 mmol/L (0.4-2.0)
[2021-07-12 02:05] LABS: Bilirubin, Total 0.4 mg/dL (0.2-1.0); Total Protein 8.2 g/dL (6.4-8.2)
[2021-07-12] MEDS ORDERED: IOHEXOL 350 MG/ML 100ML IJ ONE (02:15)
[2021-07-12] MEDS ORDERED: HEPARIN DRIP/D5W 100UNITS/ML 250 ML IV SCH (02:30)
[2021-07-12] MEDS ORDERED: HEPARIN SODIUM (PORCINE) 5000 UNITS/ML 1ML VIAL IV ONE ×2 (03:45→19:00)
[2021-07-12 07:10] LABS: INR 1.07 (0.9-1.15)
[2021-07-12 07:16] LABS: Partial Thromboplastin Time 125.3 sec (23.6-33.0)
[2021-07-12] MEDS ORDERED: DOCUSATE SOD 100 MG CAP PO PRN (08:15)
[2021-07-12] MEDS ORDERED: MORPHINE SULFATE 4 MG/ML SYR/VIAL IV PRN (08:15)
[2021-07-12] MEDS ORDERED: NITROGLYCERIN 0.4 MG SL TAB SL PRN (08:15)
[2021-07-12] MEDS ORDERED: ONDANSETRON HCL 4 MG/2 ML VIAL IV PRN (08:15)
[2021-07-12] MEDS ORDERED: ACETAMINOPHEN 325 MG TAB PO PRN (08:15)
[2021-07-12] MEDS ORDERED: HYDROcodone-ACET 5/325MG TAB PO PRN (08:15)
[2021-07-12] MEDS ORDERED: DEXTROSE (50%) 50ML SYRG IV PRN (08:15)
[2021-07-12] MEDS ORDERED: MORPHINE SULFATE INJECTION 2 MG/ML SYRG IV PRN (08:15)
[2021-07-12] MEDS ORDERED: POTASSIUM CHL 20 Meq TABLET PO ONE (08:30)
[2021-07-12] MEDS ORDERED: POTASSIUM CHL 20MEQ/100ML 100 ML IV ONE (08:30)
[2021-07-12] MEDS ORDERED: FUROSEMIDE 40 MG/4 ML VIAL IV ONE (08:30)
[2021-07-12 09:21] LABS: Basophils # (auto) 0 10 ^3/uL (0-0.2); Basophils % (auto) 0.5 % (0.0-2.0); Eosinophils # (auto) 0 10 ^3/uL (0-0.8); Eosinophils % (auto) 0.3 % (0.0-7.0); Hematocrit 39.7 % (36.0-46.0); Hemoglobin 12.8 g/dL (12.2-16.2); Lymphocytes # (auto) 2.1 10 ^3/uL (0.4-5.4); Lymphocytes % (auto) 21.7 % (10.0-50.0); Mean Corpuscular Hemoglobin 27.1 pg (28.0-32.0); Mean Corpuscular Hgb Conc. 32.3 g/dL (32.0-36.0); Monocytes # (auto) 0.9 10 ^3/uL (0-1.3); Monocytes % (auto) 9.5 % (0.0-12.0); Neutrophils # (auto) 6.7 10 ^3/uL (1.6-8.6); Nucleated Red Blood Cells % 0.1 %; Red Blood Cells 4.73 10^6/uL (4.0-5.20); Red Cell Distribution Width 14.3 % (11.8-14.3); White Blood Cell 9.9 10^3/uL (4.4-10.8)
[2021-07-12 09:40] LABS: Calcium 9.3 mg/dL (8.5-10.1); Potassium 4.1 mmol/L (3.5-5.1)
[2021-07-12 09:43] LABS: BUN/Creatinine Ratio 17.1
[2021-07-12 09:46] LABS: Bilirubin, Total 0.5 mg/dL (0.2-1.0); Total Protein 6.7 g/dL (6.4-8.2)
[2021-07-12] MEDS: FAMOTIDINE (10MG/ML) 2ML VL IV SCH ×2 (10:14→21:39)
[2021-07-12] MEDS: ASPirin 81 mg TAB PO SCH (10:14)
[2021-07-12 10:32] LABS: Urine Bacteria FEW /hpf (None Seen); Urine Blood 2+ /uL (Negative); Urine Specific Gravity 1.018 (1.001-1.035); Urine WBC 2210 /hpf (0 - 5); Urine WBC Clumps PRESENT /hpf (None Seen)
[2021-07-12 10:56] LABS: Calcium 9.2 mg/dL (8.5-10.1); Magnesium 2.5 mg/dL (1.6-2.6); Potassium 3.7 mmol/L (3.5-5.1)
[2021-07-12 11:05] LABS: BUN/Creatinine Ratio 19.7
[2021-07-12] MEDS: ACCU-CHEK COMFORT CURVE STRIP VI SCH ×3 (11:11→21:39)
[2021-07-12] MEDS: InsuLIN REG 1unit/0.01ml Soln (100units/ml) SC SCH ×3 (11:12→21:45)
[2021-07-12 11:20] LABS: INR 1.06 (0.9-1.15); Partial Thromboplastin Time 24.7 sec (23.6-33.0)
[2021-07-12] MEDS ORDERED: HEPARIN SODIUM (PORCINE) 5000 UNITS/ML 1ML VIAL ONE (12:01)
[2021-07-12] MEDS: HEPARIN DRIP/D5W 100UNITS/ML 250 ML IV SCH ×2 (12:01→23:35)
[2021-07-12] MEDS: PIPERACILLIN-TAZOB 3.375GM 100 ML IV SCH ×2 (12:58→18:09)
[2021-07-12] MEDS: SODIUM CHLOR 0.9% PF (SALINE LOCK) 10ML VIAL/SYR IV SCH ×2 (13:57→21:45)
[2021-07-12 17:37] LABS: INR 1.07 (0.9-1.15); Partial Thromboplastin Time 20.2 sec (23.6-33.0)
[2021-07-12] MEDS: ATORVASTATIN 20 MG TAB PO SCH (21:39)
[2021-07-12 23:10] LABS: INR 1.13 (0.9-1.15); Partial Thromboplastin Time 66.9 sec (23.6-33.0)
[2021-07-13] MEDS: PIPERACILLIN-TAZOB 3.375GM 100 ML IV SCH ×4 (00:48→17:38)
[2021-07-13] MEDS ORDERED: dilTIAZem 25 MG/5 ML VIAL IV ONE (01:15)
[2021-07-13] MEDS ORDERED: ATENOLOL 50 MG TAB PO ONE (01:30)
[2021-07-13] MEDS: hydrALAZINE HCL 20 MG/ML VL IV PRN (01:51)
[2021-07-13] MEDS ORDERED: CITA-77 PO (03:14)
[2021-07-13] MEDS ORDERED: ATOR20TA PO (03:14)
[2021-07-13] MEDS ORDERED: HYDR12.56 PO (03:14)
[2021-07-13] MEDS ORDERED: FURO1TAB31 PO (03:14)
[2021-07-13] MEDS ORDERED: HYDR50TA15 PO (03:14)
[2021-07-13] MEDS ORDERED: MEMA1TAB3 PO (03:14)
[2021-07-13] MEDS ORDERED: BUSP5TAB51 PO (03:14)
[2021-07-13] MEDS ORDERED: LOSA100T22 PO (03:14)
[2021-07-13] MEDS ORDERED: LEVE250T18 PO (03:14)
[2021-07-13] MEDS ORDERED: PANT40TA2 PO (03:14)
[2021-07-13] MEDS: SODIUM CHLOR 0.9% PF (SALINE LOCK) 10ML VIAL/SYR IV SCH ×3 (05:19→21:38)
[2021-07-13 05:54] VITALS: BP 152/93
[2021-07-13] MEDS: InsuLIN REG 1unit/0.01ml Soln (100units/ml) SC SCH ×4 (06:22→21:40)
[2021-07-13] MEDS: ACCU-CHEK COMFORT CURVE STRIP VI SCH ×4 (06:22→21:40)
[2021-07-13 06:57] LABS: Basophils # (auto) 0.1 10 ^3/uL (0-0.2); Basophils % (auto) 0.8 % (0.0-2.0); Eosinophils # (auto) 0 10 ^3/uL (0-0.8); Eosinophils % (auto) 0.2 % (0.0-7.0); Hematocrit 38.9 % (36.0-46.0); Hemoglobin 12.7 g/dL (12.2-16.2); Lymphocytes # (auto) 1.8 10 ^3/uL (0.4-5.4); Mean Corpuscular Hemoglobin 27.5 pg (28.0-32.0); Mean Corpuscular Hgb Conc. 32.7 g/dL (32.0-36.0); Mean Corpuscular Volume 84.2 fL (80.0-100.0); Monocytes % (auto) 7.8 % (0.0-12.0); Neutrophils % (auto) 77.2 % (37.0-80.0); Nucleated Red Blood Cells % 0.1 %; Red Blood Cells 4.62 10^6/uL (4.0-5.20); Red Cell Distribution Width 14.3 % (11.8-14.3)
[2021-07-13 07:07] LABS: INR 1.12 (0.9-1.15); Partial Thromboplastin Time 45.8 sec (23.6-33.0)
[2021-07-13 07:15] LABS: Potassium 4.6 mmol/L (3.5-5.1)
[2021-07-13 07:24] LABS: Albumin 3.1 g/dL (3.4-5.0); BUN/Creatinine Ratio 19.7; Bilirubin, Total 0.8 mg/dL (0.2-1.0); Calcium 9.2 mg/dL (8.5-10.1); Total Protein 6.8 g/dL (6.4-8.2)
[2021-07-13] MEDS: cefTRIAXone 1GM/50ML D5W 50 ML IV SCH (08:07)
[2021-07-13 09:00] VITALS: BP 133/59
[2021-07-13] MEDS: ASPirin 81 mg TAB PO SCH (09:06)
[2021-07-13] MEDS: FAMOTIDINE (10MG/ML) 2ML VL IV SCH ×2 (09:06→21:38)
[2021-07-13] MEDS ORDERED: HEPARIN DRIP/D5W 100UNITS/ML 250 ML IV SCH (09:30)
[2021-07-13] MEDS ORDERED: IPRATROPIUM BROM 0.5 MG/2.5ML INH SOL NEB PRN (10:45)
[2021-07-13] MEDS ORDERED: ALBUTEROL SULF 2.5 MG/0.5ML(0.5%) NEB SOLN NEB PRN (10:45)
[2021-07-13 15:17] LABS: INR 1.19 (0.9-1.15); Partial Thromboplastin Time 60.1 sec (23.6-33.0)
[2021-07-13 17:00] VITALS: BP 158/83
[2021-07-13] MEDS: FUROSEMIDE 40 MG/4 ML VIAL IV SCH (17:38)
[2021-07-13] MEDS: ATORVASTATIN 20 MG TAB PO SCH (21:38)
[2021-07-13 22:14] LABS: INR 1.21 (0.9-1.15); Partial Thromboplastin Time 54.6 sec (23.6-33.0)
[2021-07-14] MEDS: PIPERACILLIN-TAZOB 3.375GM 100 ML IV SCH ×4 (00:23→17:38)
[2021-07-14 04:15] LABS: Eosinophils # (auto) 0.2 10 ^3/uL (0-0.8); Hemoglobin 12.4 g/dL (12.2-16.2); Monocytes # (auto) 1.1 10 ^3/uL (0-1.3); Nucleated Red Blood Cells % 0.2 %; White Blood Cell 9.6 10^3/uL (4.4-10.8)
[2021-07-14 04:17] LABS: Basophils # (auto) 0.2 10 ^3/uL (0-0.2); Basophils % (auto) 2.1 % (0.0-2.0); Hematocrit 38.6 % (36.0-46.0); Lymphocytes # (auto) 2.7 10 ^3/uL (0.4-5.4); Lymphocytes % (auto) 28.4 % (10.0-50.0); Mean Corpuscular Hemoglobin 27.2 pg (28.0-32.0); Mean Corpuscular Hgb Conc. 32.3 g/dL (32.0-36.0); Mean Corpuscular Volume 84.2 fL (80.0-100.0); Monocytes % (auto) 11.3 % (0.0-12.0); Neutrophils # (auto) 5.4 10 ^3/uL (1.6-8.6); Neutrophils % (auto) 56.2 % (37.0-80.0); Red Blood Cells 4.58 10^6/uL (4.0-5.20); Red Cell Distribution Width 14.3 % (11.8-14.3)
[2021-07-14 04:36] LABS: Albumin 2.8 g/dL (3.4-5.0); Calcium 9.5 mg/dL (8.5-10.1); Magnesium 2.4 mg/dL (1.6-2.6)
[2021-07-14 04:39] LABS: BUN/Creatinine Ratio 22.5
[2021-07-14 04:58] LABS: Bilirubin, Total 0.7 mg/dL (0.2-1.0); Total Protein 7.4 g/dL (6.4-8.2)
[2021-07-14] MEDS: FUROSEMIDE 40 MG/4 ML VIAL IV SCH ×2 (06:42→17:37)
[2021-07-14] MEDS: SODIUM CHLOR 0.9% PF (SALINE LOCK) 10ML VIAL/SYR IV SCH ×3 (06:42→21:32)
[2021-07-14] MEDS: ACCU-CHEK COMFORT CURVE STRIP VI SCH ×4 (06:43→21:32)
[2021-07-14] MEDS: InsuLIN REG 1unit/0.01ml Soln (100units/ml) SC SCH ×4 (06:43→22:00)
[2021-07-14 09:00] VITALS: BP 144/76
[2021-07-14] MEDS: FAMOTIDINE (10MG/ML) 2ML VL IV SCH ×2 (09:26→21:32)
[2021-07-14] MEDS: cefTRIAXone 1GM/50ML D5W 50 ML IV SCH (09:26)
[2021-07-14] MEDS: ASPirin 81 mg TAB PO SCH (09:27)
[2021-07-14] MEDS: CLOPIDOGREL BISULFATE 75 MG TAB PO SCH (09:27)
[2021-07-14 14:52] VITALS: BP 168/90
[2021-07-14 16:48] VITALS: BP 188/69
[2021-07-14] MEDS: hydrALAZINE HCL 20 MG/ML VL IV PRN (17:18)
[2021-07-14 18:55] VITALS: BP 139/85
[2021-07-14] MEDS: ATORVASTATIN 20 MG TAB PO SCH (21:32)
[2021-07-14 22:25] VITALS: BP 188/69
[2021-07-15 04:44] VITALS: BP 188/69
[2021-07-15 05:08] VITALS: BP 157/93
[2021-07-15] MEDS: PIPERACILLIN-TAZOB 3.375GM 100 ML IV SCH ×4 (06:00→18:00)
[2021-07-15 06:04] LABS: Calcium 9.4 mg/dL (8.5-10.1); Magnesium 2.6 mg/dL (1.6-2.6); Potassium 3.4 mmol/L (3.5-5.1)
[2021-07-15 06:06] LABS: Phosphorus 3.4 mg/dL (2.5-4.90)
[2021-07-15] MEDS: SODIUM CHLOR 0.9% PF (SALINE LOCK) 10ML VIAL/SYR IV SCH ×2 (06:09→14:00)
[2021-07-15] MEDS: FUROSEMIDE 40 MG/4 ML VIAL IV SCH ×2 (06:09→18:00)
[2021-07-15] MEDS: ACCU-CHEK COMFORT CURVE STRIP VI SCH ×3 (06:10→18:04)
[2021-07-15] MEDS: InsuLIN REG 1unit/0.01ml Soln (100units/ml) SC SCH ×3 (06:28→18:04)
[2021-07-15] MEDS ORDERED: LEVOTHYROXINE SODIUM 25 MCG TAB PO SCH (07:00)
[2021-07-15 08:54] VITALS: BP 169/94
[2021-07-15] MEDS ORDERED: POTASSIUM CHL 20 Meq TABLET PO ONE (09:15)
[2021-07-15] MEDS: FAMOTIDINE (10MG/ML) 2ML VL IV SCH (12:10)
[2021-07-15] MEDS: ASPirin 81 mg TAB PO SCH (12:10)
[2021-07-15] MEDS: cefTRIAXone 1GM/50ML D5W 50 ML IV SCH (12:10)
[2021-07-15] MEDS: CLOPIDOGREL BISULFATE 75 MG TAB PO SCH (12:11)
[2021-07-15 13:00] VITALS: BP 131/87
[2021-07-15 17:00] VITALS: BP 168/98
== END 2021-07-15 18:58 | disposition home or self-care (01) | DRG 871 ==
LOC: ER 01:10 → EDBD 01:10 → EDUNIT# 01:10 → TELE 08:24 → TELE-WESTW 15:42
PROVIDERS: ADMIT Internal Medicine; ATTEND Internal Medicine
PROC: 5A09357 Assistance with Respiratory Ventilation, Less than 24 Consecutive Hours, Continuous Positive Airway Pressure (ICD-10-PCS; principal; 2021-07-12)
DX: A41.9 Sepsis, unspecified organism (principal); I21.4 Non-ST elevation (NSTEMI) myocardial infarction; J96.01 Acute respiratory failure with hypoxia; I50.23 Acute on chronic systolic (congestive) heart failure; N30.00 Acute cystitis without hematuria; J98.11 Atelectasis; I13.0 Hypertensive heart and chronic kidney disease with heart failure and stage 1 through stage 4 chronic kidney disease, or unspecified chronic kidney disease; Z20.822 Contact with and (suspected) exposure to COVID-19; I48.91 Unspecified atrial fibrillation; F03.90 Unspecified dementia, unspecified severity, without behavioral disturbance, psychotic disturbance, mood disturbance, and anxiety; I25.10 Atherosclerotic heart disease of native coronary artery without angina pectoris; N18.9 Chronic kidney disease, unspecified; E03.9 Hypothyroidism, unspecified; E11.22 Type 2 diabetes mellitus with diabetic chronic kidney disease; H54.7 Unspecified visual loss; I27.20 Pulmonary hypertension, unspecified; Z79.4 Long term (current) use of insulin; Z79.82 Long term (current) use of aspirin; Z82.49 Family history of ischemic heart disease and other diseases of the circulatory system; Z86.73 Personal history of transient ischemic attack (TIA), and cerebral infarction without residual deficits; Z95.5 Presence of coronary angioplasty implant and graft
CPT/HCPCS: 36415; 36600; 71045; 80048; 80053; 81001; 82805; 82962; 83036; 83605; 83735; 83880; 84100; 84439; 84443; 84484; 85025; 85610; 85730; 87426; 93005; 93306; 94660; 96365; 96367; 96375; G0378; J0330; J0696; J1815; J2543; J3480; J3490

== ENCOUNTER 2021-08-29 18:19 | Inpatient (IN) | payer OTHER, MEDICAID ==
[~2021-08-29] VITALS: Ht 167.6 cm; Wt 69.6 kg
[~2021-08-29 18:19] MED LIST changes: -AML5T PO; -ATE50T PO; +BUSP5TAB51 PO; +CITA-77 PO; -CITA10TA70 PO; +FURO1TAB31 PO; +HYDR12.56 PO; -HYDR25TA4 PO; +HYDR50TA15 PO; +LEVE250T18 PO; -LOSA-69 PO; +LOSA100T22 PO; +MEMA1TAB3 PO; +PANT40TA2 PO
[2021-08-29] MEDS ORDERED: NITROGLYCERIN 2% OINT 1GM PKG TD ONE (18:45)
[2021-08-29] MEDS ORDERED: FUROSEMIDE 40 MG/4 ML VIAL IV ONE (18:45)
[2021-08-29] MEDS ORDERED: hydrALAZINE HCL 20 MG/ML VL IV ONE (18:45)
[2021-08-29] MEDS ORDERED: cefTRIAXone 1GM/50ML D5W 50 ML IV ONE (20:15)
[2021-08-29] MEDS ORDERED: AZITHROMYCIN 500MG/ 250ML 250 ML IV ONE (20:15)
[2021-08-29 20:19] LABS: Basophils # (auto) 0.1 10 ^3/uL (0-0.2); Basophils % (auto) 0.8 % (0.0-2.0); Eosinophils # (auto) 0 10 ^3/uL (0-0.8); Hemoglobin 12.8 g/dL (12.2-16.2); Nucleated Red Blood Cells % 0.1 %; Red Cell Distribution Width 14.8 % (11.8-14.3)
[2021-08-29 20:21] LABS: Eosinophils % (auto) 0.2 % (0.0-7.0); Hematocrit 39.8 % (36.0-46.0); Lymphocytes # (auto) 0.6 10 ^3/uL (0.4-5.4); Mean Corpuscular Hemoglobin 26.5 pg (28.0-32.0); Mean Corpuscular Hgb Conc. 32.2 g/dL (32.0-36.0); Mean Corpuscular Volume 82.2 fL (80.0-100.0); Monocytes # (auto) 0.7 10 ^3/uL (0-1.3); Monocytes % (auto) 8.4 % (0.0-12.0); Neutrophils # (auto) 6.8 10 ^3/uL (1.6-8.6); Neutrophils % (auto) 83.6 % (37.0-80.0); Red Blood Cells 4.83 10^6/uL (4.0-5.20); White Blood Cell 8.1 10^3/uL (4.4-10.8)
[2021-08-29 20:34] LABS: INR 1.18 (0.9-1.15)
[2021-08-29 20:37] LABS: Albumin 3.5 g/dL (3.4-5.0); Calcium 9.1 mg/dL (8.5-10.1); Potassium 3.3 mmol/L (3.5-5.1)
[2021-08-29 20:43] LABS: Bilirubin, Total 0.5 mg/dL (0.2-1.0); Total Protein 8.1 g/dL (6.4-8.2)
[2021-08-29] MEDS ORDERED: ASPirin 325 MG TAB PO ONE (21:00)
[2021-08-29] MEDS ORDERED: ENOXAPARIN SOD 100 MG/1 ML SYRINGE SC ONE (21:00)
[2021-08-29] MEDS ORDERED: DEXTROSE (50%) 50ML SYRG IV PRN (22:15)
[2021-08-29] MEDS ORDERED: ONDANSETRON HCL 4 MG/2 ML VIAL IV PRN (22:15)
[2021-08-29] MEDS ORDERED: DOCUSATE SOD 100 MG CAP PO PRN (22:15)
[2021-08-29] MEDS ORDERED: HYDROcodone-ACET 5/325MG TAB PO PRN (22:15)
[2021-08-29] MEDS ORDERED: ACETAMINOPHEN 325 MG TAB PO PRN (22:15)
[2021-08-29] MEDS ORDERED: MORPHINE SULFATE INJECTION 2 MG/ML SYRG IV PRN (23:15)
[2021-08-29] MEDS ORDERED: NITROGLYCERIN 0.4 MG SL TAB SL PRN (23:15)
[2021-08-29] MEDS: POTASSIUM CHL 20MEQ/50ML 50 ML IV SCH (23:20)
[2021-08-30] VITALS (8 sets, daily range): BP systolic 153–179; BP diastolic 88–99
[2021-08-30] MEDS: POTASSIUM CHL 20MEQ/50ML 50 ML IV SCH (01:23)
[2021-08-30] MEDS ORDERED: FUROSEMIDE 40 MG/4 ML VIAL IV ONE (05:00)
[2021-08-30] MEDS ORDERED: FUROSEMIDE 40 MG/4 ML VIAL ONE (05:01)
[2021-08-30] MEDS ORDERED: LABETALOL HCL 5 MG/ML 4ML SYRINGE IV ONE (05:30)
[2021-08-30] MEDS ORDERED: AMIODARONE HCL 150 MG in D5W 5% 100 ML IV ONE (05:45)
[2021-08-30] MEDS ORDERED: AMIODARONE HCL (50 MG/ ML) 3 ML VIAL IV ONE (05:56)
[2021-08-30] MEDS ORDERED: AMIODARONE 450mg/250ml AE 250 ML IV SCH (06:00)
[2021-08-30] MEDS: ACCU-CHEK COMFORT CURVE STRIP VI SCH ×4 (06:27→22:29)
[2021-08-30] MEDS: InsuLIN REG 1unit/0.01ml Soln (100units/ml) SC SCH ×4 (06:28→22:34)
[2021-08-30 06:50] LABS: Basophils # (auto) 0.1 10 ^3/uL (0-0.2); Basophils % (auto) 0.6 % (0.0-2.0); Eosinophils # (auto) 0 10 ^3/uL (0-0.8); Eosinophils % (auto) 0.1 % (0.0-7.0); Hematocrit 38.4 % (36.0-46.0); Hemoglobin 12.5 g/dL (12.2-16.2); Lymphocytes # (auto) 0.5 10 ^3/uL (0.4-5.4); Lymphocytes % (auto) 6.6 % (10.0-50.0); Mean Corpuscular Hemoglobin 26.8 pg (28.0-32.0); Mean Corpuscular Hgb Conc. 32.4 g/dL (32.0-36.0); Mean Corpuscular Volume 82.7 fL (80.0-100.0); Monocytes # (auto) 0.4 10 ^3/uL (0-1.3); Monocytes % (auto) 5.3 % (0.0-12.0); Neutrophils # (auto) 6.9 10 ^3/uL (1.6-8.6); Neutrophils % (auto) 87.4 % (37.0-80.0); Red Blood Cells 4.65 10^6/uL (4.0-5.20); Red Cell Distribution Width 15.3 % (11.8-14.3); White Blood Cell 7.9 10^3/uL (4.4-10.8)
[2021-08-30 07:07] LABS: Albumin 3.4 g/dL (3.4-5.0); Calcium 8.7 mg/dL (8.5-10.1); Potassium 3.8 mmol/L (3.5-5.1)
[2021-08-30 07:13] LABS: Bilirubin, Total 0.5 mg/dL (0.2-1.0); Total Protein 7.8 g/dL (6.4-8.2)
[2021-08-30] MEDS ORDERED: FAMOTIDINE (10MG/ML) 2ML VL IV SCH (10:00)
[2021-08-30] MEDS: ASPirin 81 mg TAB PO SCH (10:00)
[2021-08-30] MEDS ORDERED: PNEUMOCOCCAL VACC POLYS 25 MCG/0.5 ML VIAL IM ONE (10:00)
[2021-08-30] MEDS ORDERED: ENOXAPARIN SOD 100 MG/1 ML SYRINGE SC SCH (10:00)
[2021-08-30] MEDS ORDERED: FUROSEMIDE 40 MG/4 ML VIAL IV SCH (10:00)
[2021-08-30] MEDS: hydrALAZINE HCL 20 MG/ML VL IV PRN ×2 (10:10→18:21)
[2021-08-30] MEDS: AMIODARONE 450mg/250ml AE 250 ML IV SCH (12:44)
[2021-08-30] MEDS: BUMETANIDE 2.5mg/10ml (0.25 mg/ml) INJ IV SCH (18:22)
[2021-08-30] MEDS: AZITHROMYCIN 500MG/ 250ML 250 ML IV SCH (20:15)
[2021-08-30] MEDS: ATORVASTATIN 20 MG TAB PO SCH (22:00)
[2021-08-30] MEDS: ENOXAPARIN SOD 80 MG/0.8ML SYRINGE SC SCH (22:29)
[2021-08-31] MEDS: AMIODARONE 450mg/250ml AE 250 ML IV SCH ×2 (03:01→18:30)
[2021-08-31 05:00] VITALS: BP 150/100
[2021-08-31 05:14] LABS: Magnesium 2.8 mg/dL (1.6-2.6); Potassium 3.5 mmol/L (3.5-5.1)
[2021-08-31 05:19] LABS: BUN/Creatinine Ratio 25.4
[2021-08-31] MEDS: BUMETANIDE 2.5mg/10ml (0.25 mg/ml) INJ IV SCH ×2 (06:00→18:29)
[2021-08-31] MEDS: ACCU-CHEK COMFORT CURVE STRIP VI SCH ×4 (06:36→22:23)
[2021-08-31] MEDS: InsuLIN REG 1unit/0.01ml Soln (100units/ml) SC SCH ×4 (06:36→22:23)
[2021-08-31 08:00] VITALS: BP 152/96
[2021-08-31] MEDS: ASPirin 81 mg TAB PO SCH (09:46)
[2021-08-31] MEDS: ENOXAPARIN SOD 80 MG/0.8ML SYRINGE SC SCH ×2 (09:46→22:21)
[2021-08-31 13:00] VITALS: BP 152/83
[2021-08-31 17:00] VITALS: BP 145/89
[2021-08-31 20:00] VITALS: BP 133/87
[2021-08-31 22:00] VITALS: BP 137/80
[2021-08-31] MEDS: ATORVASTATIN 20 MG TAB PO SCH (22:21)
[2021-08-31] MEDS: AZITHROMYCIN 500MG/ 250ML 250 ML IV SCH (22:22)
[2021-09-01 05:30] VITALS: BP 126/76
[2021-09-01] MEDS: ACCU-CHEK COMFORT CURVE STRIP VI SCH ×4 (07:00→22:00)
[2021-09-01] MEDS: InsuLIN REG 1unit/0.01ml Soln (100units/ml) SC SCH ×4 (07:00→22:00)
[2021-09-01] MEDS: BUMETANIDE 2.5mg/10ml (0.25 mg/ml) INJ IV SCH ×2 (07:25→18:00)
[2021-09-01 09:00] VITALS: BP_SYST 128; BP_SYST 131; BP_DIAS 76
[2021-09-01] MEDS: AMIODARONE 450mg/250ml AE 250 ML IV SCH (10:00)
[2021-09-01] MEDS: ASPirin 81 mg TAB PO SCH (10:00)
[2021-09-01] MEDS: ENOXAPARIN SOD 80 MG/0.8ML SYRINGE SC SCH ×2 (10:00→22:05)
[2021-09-01 12:50] VITALS: BP 102/54
[2021-09-01 17:00] VITALS: BP_SYST 129; BP_SYST 152; BP_DIAS 63; BP_DIAS 79
[2021-09-01 20:00] VITALS: BP 130/72
[2021-09-01 22:00] VITALS: BP 129/82
[2021-09-01] MEDS: ATORVASTATIN 20 MG TAB PO SCH (22:02)
[2021-09-01] MEDS: AMIODARONE HCL 200 MG TAB PO SCH (22:03)
[2021-09-01] MEDS: AZITHROMYCIN 250 MG TAB PO SCH (22:04)
[2021-09-02] MEDS: BUMETANIDE 2.5mg/10ml (0.25 mg/ml) INJ IV SCH ×2 (05:44→18:18)
[2021-09-02] MEDS: InsuLIN REG 1unit/0.01ml Soln (100units/ml) SC SCH ×4 (05:49→21:20)
[2021-09-02] MEDS: ACCU-CHEK COMFORT CURVE STRIP VI SCH ×4 (05:50→21:21)
[2021-09-02 06:27] LABS: BUN/Creatinine Ratio 38.2; Calcium 8.3 mg/dL (8.5-10.1)
[2021-09-02] MEDS ORDERED: POTASSIUM CHLORIDE 60 MEQ, LIDOCAINE 1% (LOCAL ANESTH.) 6 ML in SODIUM CHL 0.9% 500 ML IV ONE (08:15)
[2021-09-02 09:00] VITALS: BP 93/54
[2021-09-02] MEDS: ASPirin 81 mg TAB PO SCH (09:53)
[2021-09-02] MEDS: AMIODARONE HCL 200 MG TAB PO SCH ×2 (09:53→21:19)
[2021-09-02] MEDS: ENOXAPARIN SOD 80 MG/0.8ML SYRINGE SC SCH ×2 (09:54→21:20)
[2021-09-02 13:00] VITALS: BP 109/51
[2021-09-02] MEDS ORDERED: LATA0.0019 EACHEYE (13:31)
[2021-09-02] MEDS ORDERED: MEMA1TAB3 PO (13:31)
[2021-09-02] MEDS ORDERED: BRIM0.2S17 EACHEYE (13:31)
[2021-09-02] MEDS ORDERED: OXYB5TAB24 PO (13:31)
[2021-09-02] MEDS ORDERED: METF-489 PO (13:31)
[2021-09-02] MEDS ORDERED: CITA-77 PO (13:31)
[2021-09-02] MEDS ORDERED: CICL80AE2 IN (13:31)
[2021-09-02] MEDS ORDERED: LEVE1TAB47 PO (13:31)
[2021-09-02] MEDS ORDERED: HYDR100T22 PO (13:31)
[2021-09-02] MEDS ORDERED: POTA-220 PO (13:35)
[2021-09-02] MEDS ORDERED: BISO5TAB44 PO (13:35)
[2021-09-02] MEDS ORDERED: POLY33504 PO (13:35)
[2021-09-02] MEDS ORDERED: DABI150C5 PO (13:35)
[2021-09-02] MEDS ORDERED: NITR0.4S29 SL (13:35)
[2021-09-02] MEDS ORDERED: DILT-29 PO (13:35)
[2021-09-02 16:46] VITALS: BP 128/81
[2021-09-02] MEDS: AZITHROMYCIN 250 MG TAB PO SCH (21:18)
[2021-09-02] MEDS: ATORVASTATIN 20 MG TAB PO SCH (21:19)
[2021-09-02 22:28] VITALS: BP 143/82
[2021-09-03 05:02] VITALS: BP 131/72
[2021-09-03] MEDS: BUMETANIDE 2.5mg/10ml (0.25 mg/ml) INJ IV SCH ×2 (06:28→18:18)
[2021-09-03] MEDS: InsuLIN REG 1unit/0.01ml Soln (100units/ml) SC SCH ×3 (06:47→18:20)
[2021-09-03] MEDS: ACCU-CHEK COMFORT CURVE STRIP VI SCH ×3 (06:47→18:18)
[2021-09-03 09:00] VITALS: BP 137/73
[2021-09-03] MEDS: ASPirin 81 mg TAB PO SCH (09:27)
[2021-09-03] MEDS: ENOXAPARIN SOD 80 MG/0.8ML SYRINGE SC SCH (09:27)
[2021-09-03] MEDS: AMIODARONE HCL 200 MG TAB PO SCH (09:27)
[2021-09-03 13:00] VITALS: BP_SYST 128; BP_SYST 132; BP_DIAS 72; BP_DIAS 98
[2021-09-03 15:24] VITALS: BP 133/73
[2021-09-03 17:00] VITALS: BP 132/98
== END 2021-09-03 19:00 | disposition home health service (06) | DRG 280 ==
LOC: EDUNIT# 18:19 → EDBD 18:19 → ER 18:25 → TELE 23:01 → TELE-WESTW 23:44
PROVIDERS: ADMIT Nurse Practitioner Family; ATTEND Internal Medicine
PROC: 5A09457 Assistance with Respiratory Ventilation, 24-96 Consecutive Hours, Continuous Positive Airway Pressure (ICD-10-PCS; principal; 2021-08-30)
PROC: 5A09357 Assistance with Respiratory Ventilation, Less than 24 Consecutive Hours, Continuous Positive Airway Pressure (ICD-10-PCS; 2021-09-01)
DX: I21.4 Non-ST elevation (NSTEMI) myocardial infarction (principal); J96.21 Acute and chronic respiratory failure with hypoxia; I50.23 Acute on chronic systolic (congestive) heart failure; J18.9 Pneumonia, unspecified organism; J44.0 Chronic obstructive pulmonary disease with (acute) lower respiratory infection; D68.59 Other primary thrombophilia; I27.20 Pulmonary hypertension, unspecified; I48.91 Unspecified atrial fibrillation; E11.22 Type 2 diabetes mellitus with diabetic chronic kidney disease; E11.65 Type 2 diabetes mellitus with hyperglycemia; E87.6 Hypokalemia; F03.90 Unspecified dementia, unspecified severity, without behavioral disturbance, psychotic disturbance, mood disturbance, and anxiety; I25.10 Atherosclerotic heart disease of native coronary artery without angina pectoris; H54.7 Unspecified visual loss; N18.9 Chronic kidney disease, unspecified; Z20.822 Contact with and (suspected) exposure to COVID-19; E66.9 Obesity, unspecified; Z82.49 Family history of ischemic heart disease and other diseases of the circulatory system; Z68.25 Body mass index [BMI] 25.0-25.9, adult
CPT/HCPCS: 36415; 36600; 71045; 80048; 80053; 82805; 82962; 83036; 83735; 83880; 84443; 84484; 85025; 85379; 85610; 87040; 87426; 93005; 94660; 96365; 96367; 96375; G0378; J0696; J1815; J2001; J3490; J7060